=== PATIENT | male | born 1985 | race Caucasian/White ===

== ENCOUNTER 2017-02-04 23:29 | Emergency (ER) | payer SELFPAY ==
[2017-02-05 01:30] VITALS: BP 135/85
== END 2017-02-05 01:30 | disposition home or self-care (01) ==
LOC: ED 23:29
DX: S39.011A Strain of muscle, fascia and tendon of abdomen, initial encounter (principal); X58.XXXA Exposure to other specified factors, initial encounter; Y93.89 Activity, other specified; Y92.89 Other specified places as the place of occurrence of the external cause; Y99.8 Other external cause status
CPT/HCPCS: Q0092